=== PATIENT | female | born 1990 | race Caucasian/White ===

== ENCOUNTER 2019-03-01 06:59 | Emergency (ER) | payer OTHER ==
[~2019-03-01] VITALS: Ht 157.5 cm; Wt 96.7 kg
[2019-03-01] MEDS ORDERED: ONDANSETRON 4MG/2ML VIAL (J2405) IV ONE (07:45)
[2019-03-01] MEDS ORDERED: NS 1,000 ML IV ONE (07:45)
[2019-03-01 08:07] LABS: BASO % 0.2 % (0.0-1.0); EOS # 0.1 10^3/uL (0.0-0.5); EOS % 1.3 % (0.0-3.0); HEMATOCRIT 36.4 % (36.0-47.0); HEMOGLOBIN 11.8 g/dl (12.0-15.5); LYMPH # 1.1 10^3/uL (1.5-5.0); LYMPH % 11.9 % (24.0-44.0); MEAN CORPUSCULAR HEMOGLOBIN 27.7 pg (27.0-33.0); MEAN CORPUSCULAR HGB CONC 32.4 g/dl (32.0-36.5); MEAN CORPUSCULAR VOLUME 85.4 fl (80.0-96.0); MONO # 0.6 10^3/uL (0.0-0.8); NEUTROPHILS # 7.5 10^3/uL (1.5-8.5); PLATELET COUNT, AUTOMATED 249 10^3/uL (150-450); RED BLOOD COUNT 4.26 10^6/uL (4.00-5.40); WHITE BLOOD COUNT 9.4 10^3/uL (4.0-10.0)
[2019-03-01 08:25] LABS: BLOOD UREA NITROGEN 9 MG/DL (7-18); CALCIUM LEVEL 8.9 MG/DL (8.5-10.1); CARBON DIOXIDE LEVEL 26 MEQ/L (21-32); CHLORIDE LEVEL 107 MEQ/L (98-107); CREATININE FOR GFR 0.66 MG/DL (0.55-1.30); GLOMERULAR FILTRATION RATE > 60.0 (>60); GLUCOSE, FASTING 82 MG/DL (70-100); POTASSIUM SERUM 3.9 MEQ/L (3.5-5.1); SODIUM LEVEL 139 MEQ/L (136-145)
[2019-03-01 08:30] LABS: AMORPHOUS SEDIMENT SMALL (NEGATIVE); APPEARANCE, URINE HAZY (CLEAR); BACTERIA, URINE AUTO NEGATIVE (NEGATIVE); BILIRUBIN, URINE AUTO NEGATIVE (NEGATIVE); BLOOD, URINE BLOOD NEGATIVE (NEGATIVE); COLOR, URINE YELLOW (YELLOW); GLUCOSE, URINE (UA) AUTO NEGATIVE (NEGATIVE); KETONE, URINE AUTO NEGATIVE (NEGATIVE); LEUKOCYTE ESTERASE, URINE AUTO NEGATIVE (NEGATIVE); MUCUS, URINE SMALL (NEGATIVE); NITRITE, URINE AUTO NEGATIVE (NEGATIVE); PROTEIN, URINE AUTO NEGATIVE (NEGATIVE); RBC, URINE AUTO 2 /HPF (0-3); SPECIFIC GRAVITY URINE AUTO 1.025 (1.002-1.035); SQUAMOUS EPITHELIAL CELL UR AU 1 /HPF (0-6); UROBILINOGEN, URINE AUTO 0.2 mg/dL (0.0-2.0); WBC, URINE AUTO 1 /HPF (0-3)
[2019-03-01] MEDS ORDERED: ONDA4TAB6 PO (09:45)
[2019-03-01 09:53] VITALS: BP 131/71
== END 2019-03-01 09:55 | disposition home or self-care (01) ==
LOC: M ED 06:59
DX: O21.0 Mild hyperemesis gravidarum (principal); Z3A.12 12 weeks gestation of pregnancy; Z88.0 Allergy status to penicillin
CPT/HCPCS: 80048; 81001; 85025; 87086; 96361; 96374; 99284; J2405

== ENCOUNTER 2019-09-02 03:34 | Inpatient (IN) | payer OTHER ==
[2019-09-02] VITALS (8 sets, daily range): BP systolic 110–142; BP diastolic 61–79
[~2019-09-02] VITALS: Ht 157.5 cm; Wt 109.1 kg
[~2019-09-02 03:34] MED LIST: ONDA4TAB6 PO
[2019-09-02 05:00] LABS: HEMATOCRIT 33.7 % (36.0-47.0); HEMOGLOBIN 10.6 g/dl (12.0-15.5); MEAN CORPUSCULAR HEMOGLOBIN 24.9 pg (27.0-33.0); MEAN CORPUSCULAR HGB CONC 31.5 g/dl (32.0-36.5); MEAN CORPUSCULAR VOLUME 79.3 fl (80.0-96.0); PLATELET COUNT, AUTOMATED 283 10^3/uL (150-450); RED BLOOD COUNT 4.25 10^6/uL (4.00-5.40); WHITE BLOOD COUNT 15.5 10^3/uL (4.0-10.0)
[2019-09-02] MEDS ORDERED: ONDANSETRON 4MG/2ML VIAL IV ONE (05:00)
[2019-09-02] MEDS ORDERED: LACTATED RINGER'S 1000 ML IV STA (05:08)
[2019-09-02] MEDS ORDERED: LR 1,000 ML IV SCH (05:08)
[2019-09-02] MEDS ORDERED: MOM 30ML SUSPENSION UDC PO PRN (05:15)
[2019-09-02] MEDS ORDERED: diphenhydrAMINE 25MG CAP PO PRN (05:15)
[2019-09-02] MEDS ORDERED: SIMETHICONE 80 MG CHEW TAB PO PRN (05:15)
[2019-09-02] MEDS ORDERED: BUTORPHANOL 2 MG/ML INJ (J0595) IV PRN (05:15)
[2019-09-02] MEDS ORDERED: CALCIUM CARBONATE 500 MG CHEW U/D PO PRN (05:15)
[2019-09-02] MEDS ORDERED: PROMETHAZINE INJ 25 MG/ML VIAL (J2550) IV PRN (05:15)
[2019-09-02] MEDS ORDERED: ACETAMINOPHEN 500 MG TAB PO PRN (05:15)
--- NOTE | 2019-09-02 05:23 | HPEPDOC ---
Obstetrical History & Physical General Date of Admission Sep 02, 2019 at 04:23 History of Present Illness Patient is a 29yo at 39.0wks by LMP c/w 10wk US. C/o ctx since 129. No LOF or VB. No headaches or visual changes. Good movement. 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 Past Medical History Medical History migraines Surgical History: Carbon teeth Family History Significant Family History: No pertinent family hx Social History Social history none Marital Status: Family situation: Spouse/partner deployed Psychosocial History: No pertinent psych hx * Smoker: non-smoker Alcohol: Denies Drugs: denies Abuse Violence Screening Have you been hit/kicked/slapp: No Have you been sexually assault: No Imunizations Tdap status: current Influenza Status: current Allergies Coded Allergies: amoxicillin (Verified Allergy, Severe, itchy tongie, rash, 03/01/19) Medications Scheduled PRN Ondansetron (Ondansetron Odt) 4 Mg Tab.rapdis, 1 TAB PO Q6-8HP PRN for nausea/vomiting Physical Examination Physical Examination GENERAL: Alert and oriented times three. BREAST: . ABDOMEN: Gravid and non-tender to touch. FETUS: Is vertex (VTX) by sterile vaginal examination (SVE), fetus is 3500gm by Bong. HEART RATE: Regular rate and rhythm. LUNGS: Clear to auscultation (CTA). EXTREMITIES: No edema. Vital Signs/I&O Vital Signs Date Time Temp Pulse Resp B/P (MAP) Pulse Ox O2 Delivery O2 Flow Rate FiO2 09/02/19 04:11 98.7 100 118/77 (91) Laboratory Data 24H LABS Laboratory Tests 2 09/02/19 04:36: Serology Scanned Report Hepatitis B Testing 09/02/19 04:50: Nucleated Red Blood Cells % (auto) 0.0 CBC/BMP Laboratory Tests 09/02/19 04:50 Pertinent Laboratoy Data Blood Type: O+ RBC Antibody Screen: Negative HIV: Negative Hepatitis B: Negative Rapid Plasma Reagin: Nonreactive Rubella: Immune Varicella: Immune Chlamydia/Gonorrhea: Negative Group B Streptococcus: Negative Quad Screen Test: Negative Cystic Fibrosis: Negative Glucose Tolerance Test: 125 Anatomy Ultrasound Ultrasound Date: Apr 25, 2019 Placenta Location: Anterior Normal Anatomy: Yes Placenta Previa: No Estimated Weight (grams): 420 Steroid Therapy Steroid Therapy: No Vaginal Examination Dilation: 5 cm Effacement: 100% Station: -2 Assessment Heart Rate (FHR): 130 Variability: Moderate Accelerations: Positive Decelerations: None Tocometer Contractions: Yes Frequency: every 2-5 min. Multi-drug resistant Organism: No history of MDRO Assessment/Plan Assessment Patient is a 29yo at 39.0wks by LMP c/w 10wk US. Admit for labor and expect delivery by . Pain management per patient preference, which was discussed with her. I discussed risks of with patient of failure with section, distress, bleeding, infection, , vaginal or perineal or neighboring organ tear. Currently, fetus is reassuring. GBS is negative, no need for antibiotics. Plan Admit and orient. 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 Diet: Clears. Group B Streptococcus (GBS) negative. Labs and intravenous (IV) per unit protocol. Counseled on Pitocin augmentation of labor. Lactated Ringers (LR): Bolus 500 mL, then at 125 mL/hr. Anticipate normal spontaneous delivery (). C-S as appropriate. Pain mgt per patient Bessy Wade MD Sep 02, 2019 05:23
--- NOTE | 2019-09-02 08:51 | IPNPDOC ---
Text Note Date of Service The patient was seen on 09/02/19. NOTE accept care form Dr. Wade. Patient is a 29yo at 39.0 admitted for labor at 5cm. patient is devante on her own. plan for unmedicated delivery. vitals: normal NAD abd: gravid, soft, nt, cephalic le: no edema/erythema/tenderness FHT: 125/mod alexia/pos accel/no decel toco: ctx q 2-3mins ce: 5-6/80/0 a/p patient transistioning to active labor. AROM clear. Recheck in 4hrs, sooner as indicated. Jessica, VS,Rasheedbone, I+O VS, Fishbone, I+O Laboratory Tests 09/02/19 04:50 Vital Signs Date Time Temp Pulse Resp B/P (MAP) Pulse Ox O2 Delivery O2 Flow Rate FiO2 09/02/19 04:11 98.7 100 118/77 (91) DIEGO HERNANDEZ DO Sep 02, 2019 08:51
[2019-09-02] MEDS ORDERED: OXYTOCIN 30 UNITS IN 0.9% NaCl 500ML IV BAG (J2590) As Ordered ONE (10:24)
--- NOTE | 2019-09-02 10:46 | IPNPDOC ---
Text Note Date of Service The patient was seen on 09/02/19. NOTE patient feeling pressure and urge to push. fht: 125/mod alexia/pos accel/no decel toco: ctx q 2mins ce: anterior lip, reduced to complete with pushing. c/c/+1. a/p patient in second stage of labor. continue to push. DO Jessica VS,Fishbone, I+O VS, Fishbone, I+O Laboratory Tests 09/02/19 04:50 Vital Signs Date Time Temp Pulse Resp B/P (MAP) Pulse Ox O2 Delivery O2 Flow Rate FiO2 09/02/19 04:11 98.7 100 118/77 (91) DIEGO HERNANDEZ DO Sep 02, 2019 10:46
--- NOTE | 2019-09-02 12:50 | IPNPDOC ---
Text Note Date of Service The patient was seen on 09/02/19. NOTE patient has been pushing in various positions for 2 hrs. vitals: normal FHT: 135/mod alexia/pos accel/no decel toco: ctx q 1-3mins ce: c/c/+2 a/p patient in second stage, pushing for 2hrs. Discussed with patient my concern for slow progress for the last two hours. 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 Possible CPD. would recommend section if does not make significant station change in 1 hr. Patient expresses understanding. DO Jessica VS,Alexandrae, I+O VS, Fishbone, I+O Laboratory Tests 09/02/19 04:50 Vital Signs Date Time Temp Pulse Resp B/P (MAP) Pulse Ox O2 Delivery O2 Flow Rate FiO2 09/02/19 04:11 98.7 100 118/77 (91) DIEGO HERNANDEZ DO Sep 02, 2019 12:50
[2019-09-02] MEDS ORDERED: MEASLES,MUMPS,RUBELLA VACCINE INJ (MMR-II) (90707) SC SCH (15:30)
[2019-09-02] MEDS ORDERED: DIBUCAINE 1% OINTMENT 30GM TOP PRN (15:30)
[2019-09-02] MEDS ORDERED: RHOGAM 300 MCG (1500 IU) INJ (J2790) IM SCH (15:30)
[2019-09-02] MEDS ORDERED: ACETAMINOPHEN TAB 650MG DOSE (2X325MG) PO PRN (15:30)
--- NOTE | 2019-09-02 15:39 | DNPDOC ---
[facility] Delivery Note Delivery Note DATE OF DELIVERY: 09/02/2019 PREDELIVERY DIAGNOSIS: 39+0/7 weeks' gestation and labor. POST DELIVERY DIAGNOSIS: Delivered. PROCEDURE: Spontaneous vaginal delivery MANUFACTURING TECHNOLOGIST: Dr. Selam Lopez DO ANESTHESIA: None ESTIMATED BLOOD LOSS: 250 mL. FINDINGS: 8 pound 4 ounce female infant, Score 7/8, nuchal cord times x 1 DELIVERY SUMMARY: After pushing for 4 hrs, baby delivered OA, Restituted LOT. Loose nuchal cord reduced. Anterior shoulder delivered followed by posterior shoulder. Body delivered with ease. baby placed on maternal abdomen. cord allowed to stop pulsating. Cord clamped x 2 and cut by grandmother of baby. pitocin bolus started. Placenta delivered spontaneously. Inspection revealed first degree and left labial tear, repaired with 3-O vicryl. Lidocaine 1% plain used for local during repair. Baby and mother bonding when I left the room. DO MARY Lopez LUAT N. DO Sep 02, 2019 15:39
[2019-09-02] MEDS ORDERED: OXYTOCIN DRIP 30 UNITS in IV 1 EA IV SCH (15:45)
[2019-09-02] MEDS: IBUPROFEN 800 MG TAB PO PRN (17:11)
[2019-09-02] MEDS ORDERED: LIDOCAINE 1% MDV 20ML VIAL As Ordered ONE (18:25)
[2019-09-02] MEDS: DOCUSATE SODIUM 100 MG CAP PO SCH (20:30)
[2019-09-03 06:00] VITALS: BP 117/57
--- NOTE | 2019-09-03 07:00 | IPNPDOC ---
Progress Note Date of Service: Sep 03, 2019 Day#: 1 Progress Note SUBJECT: Patient is a 29 yo s/p ppd #1. She has been ambulating, vo iding spontaneously without issue and tolerating regular diet. Breast feeding without issue. Reports lochia is like a normal period. declines contraceptive options at this time. spouse is deployed OBJECTIVE: VITAL SIGNS: Within normal limits, afebrile. Alert and oriented times three. Abdomen: Fundus firm at U-2. Soft, NTTP. LE: non pitting symmetrical edema A/P ppd #1, doing well. encourage bf. contraceptive counseling. routine ppc. anticipate d/c home ppd #2. Le, DO VS, I&O, 24H, Fishbone Vital Signs/I&O Vital Signs Date Time Temp Pulse Resp B/P (MAP) Pulse Ox O2 Delivery O2 Flow Rate FiO2 09/03/19 06:00 98.5 91 18 117/57 (77) I&O- Last 24 Hours up to 6 AM 09/03/19 06:00 Intake Total 2500 ml Output Total 500 ml Balance 2000 ml DIEGO HERNANDEZ DO Sep 03, 2019 07:00
[2019-09-03 08:10] VITALS: BP 117/57
[2019-09-03] MEDS: PRENATAL VITAMINS CHEWABLE TABLET PO SCH (08:10)
[2019-09-03] MEDS: DOCUSATE SODIUM 100 MG CAP PO SCH ×2 (10:20→20:52)
[2019-09-03] MEDS: IBUPROFEN 800 MG TAB PO PRN ×2 (10:23→20:52)
[2019-09-03 18:00] VITALS: BP 114/64
[2019-09-04 05:32] VITALS: BP 107/59
[2019-09-04] MEDS ORDERED: PRENCHW PO (06:49)
[2019-09-04] MEDS ORDERED: DOCU100C16 PO (06:49)
[2019-09-04] MEDS ORDERED: DIBU10OI TOP (06:49)
[2019-09-04] MEDS ORDERED: IBUP80TA PO (06:49)
[2019-09-04 07:45] VITALS: BP 107/59
[2019-09-04] MEDS: DOCUSATE SODIUM 100 MG CAP PO SCH (07:59)
[2019-09-04] MEDS: IBUPROFEN 800 MG TAB PO PRN (07:59)
[2019-09-04] MEDS: PRENATAL VITAMINS CHEWABLE TABLET PO SCH (08:00)
--- NOTE | 2019-09-05 13:35 | DSES ---
DATE OF ADMISSION: 09/02/2019 DATE OF DISCHARGE: 09/04/2019 A 29-year-old 3, now para 1, admitted with contractions at 39 weeks of gestation. Had a spontaneous vaginal delivery of a female, 8 pounds 4 ounces, scores of 7 and 8 at one and five minutes, respectively. Cord times one. She sustained a small first-degree tear. Had no anesthesia. On her second day we discussed phlebitis, cystitis, mastitis, metritis, cellulitis, diet, exercise pain management, and perineal, breast, and wound care. Her vital signs on discharge: Her blood pressure 107/59, respirations are 17, pulse 65, temperature 98.1. Her hemoglobin on admission was 10.6, hematocrit 33.7, and platelets were 283. The rest of the examination unremarkable. Normocephalic, atraumatic. Neck: Full range of motion. Pupils equal and reactive to light. Distal pulses are symmetric. No evidence of deep vein thrombosis (DVT), pulmonary embolism (PE), or superficial phlebitis. Chest is clear bilaterally to bases. No wheezes or rhonchi. No costovertebral angle (CVA) tenderness. Abdomen is soft. Four-quadrant bowel sounds are noted. Uterus 2 below. Perineum is healing. She has no nausea, vomiting, diarrhea, or constipation. No urgency or frequency. Presently breast-feeding is going well. Plans on discharge are to parts picker her medications at [place], 6-week checkup at [facility], and will be directed to [facility] for baby's initial visit. All questions were answered. A 20-minute discussion.
== END 2019-09-04 11:45 | disposition home or self-care (01) | DRG 807 ==
LOC: M LDO 03:34 → EEVIPCON 04:23 → M LDI 04:23 → M OBS 16:59
PROVIDERS: ADMIT Obstetrics & Gynecology; ATTEND Obstetrics & Gynecology
PROC: 10E0XZZ Delivery of Products of Conception, External Approach (ICD-10-PCS; principal; 2019-09-02)
PROC: 0HQ9XZZ Repair Perineum Skin, External Approach (ICD-10-PCS; 2019-09-02)
PROC: 10907ZC Drainage of Amniotic Fluid, Therapeutic from Products of Conception, Via Natural or Artificial Opening (ICD-10-PCS; 2019-09-02)
DX: O69.81X0 Labor and delivery complicated by cord around neck, without compression, not applicable or unspecified (principal); Z37.0 Single live birth; Z3A.39 39 weeks gestation of pregnancy; O70.0 First degree perineal laceration during delivery